=== PATIENT | female | born 1935 | race Caucasian/White ===

== ENCOUNTER 2017-12-10 11:23 | Inpatient (IN) | payer MEDICARE, MEDICAID ==
[~2017-12-10] VITALS: Ht 152.4 cm; Wt 56.7 kg
[2017-12-10 13:20] LABS: BASOPHILS % 0.6 % (0.0-2.0); EOSINOPHILS % 2.6 % (0.0-5.0); HEMATOCRIT. 39.6 % (36.0-48.0); HEMOGLOBIN. 13.5 g/dL (12.0-16.0); LYMPHOCYTES % 19.1 % (20.0-50.0); MEAN CORPUSCULAR HEMOGLOBIN 30.6 pg (28.0-32.0); MEAN CORPUSCULAR VOLUME 89.6 fL (81.0-99.0); MEAN PLATELET VOLUME 8.9 fl (7.4-10.4); MONOCYTES % 7.9 % (2.0-8.0); NEUTROPHILS % 69.8 % (40.0-76.0); PLATELET 216 x1000/uL (130-400); RED BLOOD CELL COUNT 4.41 mill/uL (4.2-5.4); RED CELL DISTRIBUTION WIDTH 14.2 % (11.6-14.6)
[2017-12-10 13:25] LABS: INR 1.1; PROTHROMBIN TIME 10.9 sec (9.4-11.6)
[2017-12-10 13:30] LABS: CHLORIDE 108 mEq/L (98-107)
[2017-12-10] MEDS ORDERED: NITROGLYCERIN OINT 1GM/INCH UDPKT TD ONE (13:45)
[2017-12-10] MEDS ORDERED: ASPIRIN 325MG TABLET PO ONE (13:45)
[2017-12-10] MEDS ORDERED: MAGNESIUM/ALUMINUM HYDROXIDE/SIMETHICONE 30ML UDC PO PRN (16:15)
[2017-12-10] MEDS ORDERED: DIPHENHYDRAMINE 50MG/ML VIAL IV PRN (16:15)
[2017-12-10] MEDS ORDERED: NA PHOS,M-B/NA PHOS,DI-BA ENEMA 118ML PR PRN (16:15)
[2017-12-10] MEDS ORDERED: ACETAMINOPHEN 325MG TABLET PO PRN (16:15)
[2017-12-10] MEDS ORDERED: GUAIFENESIN 200MG/10ML SUGAR FREE UDC PO PRN (16:15)
[2017-12-10] MEDS ORDERED: IPRATROPIUM/ALBUTEROL 0.5-3(2.5)MG/3ML NEB INH PRN (16:15)
[2017-12-10] MEDS ORDERED: CLONIDINE 0.1MG TABLET PO PRN (16:15)
[2017-12-10] MEDS ORDERED: NITROGLYCERIN 0.4MG TABLET SL SL PRN (16:15)
[2017-12-10] MEDS ORDERED: TRAMADOL 50MG TABLET PO PRN (16:15)
[2017-12-10] MEDS ORDERED: ZOLPIDEM TARTRATE 5MG TABLET PO PRN (16:15)
[2017-12-10] MEDS ORDERED: ONDANSETRON HCL 4MG/2ML VIAL IV PRN (16:15)
[2017-12-10] MEDS ORDERED: DOCUSATE SODIUM 100MG CAPSULE PO PRN (16:15)
[2017-12-10] MEDS ORDERED: LORAZEPAM 0.5MG TABLET PO PRN (16:15)
[2017-12-10] MEDS ORDERED: MORPHINE SULFATE 4 MG/ML CPJ (NOT FOR IM USE) IV PRN (17:00)
[2017-12-10] MEDS ORDERED: METOPROLOL TARTRATE 25MG TABLET PO NR (21:15)
[2017-12-10] MEDS ORDERED: FAMOTIDINE 20MG/2ML VIAL IV NR (21:15)
[2017-12-10] MEDS ORDERED: SUCRALFATE 1 G/10 ML UDC PO NR (21:30)
[2017-12-10 22:21] LABS: CREATINE KINASE 26 IU/L (26-192); CREATINE KINASE MB FRACTION 0.5 ng/mL (0.5-3.6)
[2017-12-10 23:20] VITALS: BP 128/53
[2017-12-11] VITALS: BP 128/53
[2017-12-11 04:00] VITALS: BP 101/52
[2017-12-11] MEDS ORDERED: REGADENOSON 0.4 MG/5 ML IV ONE ×2 (06:15→11:12)
[2017-12-11 07:37] LABS: BASOPHILS % 0.8 % (0.0-2.0); EOSINOPHILS % 3.5 % (0.0-5.0); HEMATOCRIT. 38.6 % (36.0-48.0); HEMOGLOBIN. 12.9 g/dL (12.0-16.0); LYMPHOCYTES % 22.1 % (20.0-50.0); MEAN CORPUSCULAR HEMOGLOBIN 29.9 pg (28.0-32.0); MEAN CORPUSCULAR VOLUME 89.2 fL (81.0-99.0); MEAN PLATELET VOLUME 8.9 fl (7.4-10.4); MONOCYTES % 7.8 % (2.0-8.0); NEUTROPHILS % 65.8 % (40.0-76.0); PLATELET 213 x1000/uL (130-400); RED BLOOD CELL COUNT 4.32 mill/uL (4.2-5.4); RED CELL DISTRIBUTION WIDTH 14.5 % (11.6-14.6)
[2017-12-11 08:17] LABS: CHLORIDE 108 mEq/L (98-107); CREATINE KINASE 22 IU/L (26-192); CREATINE KINASE MB FRACTION < 0.5 ng/mL (0.5-3.6)
[2017-12-11 08:26] VITALS: BP 113/48
[2017-12-11] MEDS: SUCRALFATE 1 G/10 ML UDC PO SCH ×4 (09:58→20:31)
[2017-12-11] MEDS: ASPIRIN 325MG EC TABLET PO SCH (09:58)
[2017-12-11] MEDS: ENOXAPARIN 40MG/0.4ML SYR SUBCUT SCH (09:59)
[2017-12-11] MEDS: METOPROLOL TARTRATE 25MG TABLET PO SCH ×2 (10:00→20:41)
[2017-12-11] MEDS: NITROGLYCERIN OINT 1GM/INCH UDPKT TD SCH ×3 (10:01→18:00)
[2017-12-11 12:45] VITALS: BP 113/48
[2017-12-11 16:43] VITALS: BP 105/47
[2017-12-11 20:00] VITALS: BP 125/48
[2017-12-11] MEDS ORDERED: FAMOTIDINE 20MG/2ML VIAL IV SCH (21:00)
[2017-12-12] VITALS: BP 113/50
[2017-12-12] MEDS: NITROGLYCERIN OINT 1GM/INCH UDPKT TD SCH ×2 (00:07→05:59)
[2017-12-12 04:00] VITALS: BP 124/47
[2017-12-12] MEDS: SUCRALFATE 1 G/10 ML UDC PO SCH ×2 (05:59→12:21)
[2017-12-12 07:04] LABS: BASOPHILS % 0.8 % (0.0-2.0); EOSINOPHILS % 6.6 % (0.0-5.0); HEMATOCRIT. 39.1 % (36.0-48.0); HEMOGLOBIN. 13.1 g/dL (12.0-16.0); LYMPHOCYTES % 31.5 % (20.0-50.0); MEAN CORPUSCULAR HEMOGLOBIN 29.9 pg (28.0-32.0); MEAN CORPUSCULAR VOLUME 89.1 fL (81.0-99.0); MONOCYTES % 9.2 % (2.0-8.0); NEUTROPHILS % 51.9 % (40.0-76.0); PLATELET 210 x1000/uL (130-400); RED BLOOD CELL COUNT 4.39 mill/uL (4.2-5.4); RED CELL DISTRIBUTION WIDTH 13.7 % (11.6-14.6)
[2017-12-12 07:21] LABS: CHLORIDE 104 mEq/L (98-107)
[2017-12-12 07:36] LABS: HDL CHOLESTEROL 34 mg/dL (40-59); LDL CHOLESTEROL 70 mg/dL (5-100)
[2017-12-12 08:43] VITALS: BP 128/47
[2017-12-12] MEDS: ENOXAPARIN 40MG/0.4ML SYR SUBCUT SCH (09:26)
[2017-12-12] MEDS: METOPROLOL TARTRATE 25MG TABLET PO SCH (09:27)
[2017-12-12] MEDS: ASPIRIN 325MG EC TABLET PO SCH (09:27)
[2017-12-12 11:36] VITALS: BP 141/52
[2017-12-12 13:36] VITALS: BP 141/52
== END 2017-12-12 15:10 | disposition home or self-care (01) | DRG 198 ==
LOC: ER 11:50 → 5WST 13:58 → SUPCPDRO 16:10 → ENRESERV 22:16
PROVIDERS: ADMIT Internal Medicine; ATTEND Internal Medicine
DX: R07.9 Chest pain, unspecified (principal); I25.10 Atherosclerotic heart disease of native coronary artery without angina pectoris; E44.1 Mild protein-calorie malnutrition; R00.1 Bradycardia, unspecified; I10 Essential (primary) hypertension; K21.9 Gastro-esophageal reflux disease without esophagitis; M79.7 Fibromyalgia; Z79.899 Other long term (current) drug therapy; Z68.24 Body mass index [BMI] 24.0-24.9, adult
CPT/HCPCS: 36415; 71045; 78452; 80048; 80053; 80061; 82550; 82553; 83036; 83880; 84484; 85025; 85610; 93005; 93017; 93306; 93970; 97116; 97161; 97166; 99285; A9500; J1650; J2785; J3490